=== PATIENT | female | born 1985 | race Caucasian/White ===

== ENCOUNTER 2018-12-18 08:00 | Inpatient (IN) ==
[2018-12-18] MEDS ORDERED: Ondansetron 4 MG/2 ML VIAL IVP PRN (08:20)
[2018-12-18] MEDS ORDERED: *HR* Nalbuphine 10 MG/ML AMPUL IVP PRN (08:20)
[2018-12-18] MEDS ORDERED: Naloxone 0.4 MG/ML INJ IVP PRN (08:20)
[2018-12-18] MEDS ORDERED: Famotidine 20 MG/2 ML VIAL IVP PRN (08:20)
[2018-12-18] MEDS ORDERED: Metoclopramide 10 MG/2 ML VIAL IVP PRN (08:20)
[2018-12-18] MEDS ORDERED: Oxytocin 20 units/ LR 1000 mL 20 UNIT/1,000 ML BAG IVC SCH ×2 (08:30→18:16)
[2018-12-18] MEDS ORDERED: Ringers Solution, Lactated 1,000 ML IVC SCH (08:30)
[2018-12-18 09:37] LABS: Basophils % 0.1 %; Eosinophils # 0.1 K/mcL (0.0-0.6); Eosinophils % 0.6 %; Hematocrit 37.2 % (35.3-44.9); Hemoglobin 12.6 g/dL (11.5-15.4); Immature Granulocytes % 0.9 % (0-4); Lymphocytes # 1.4 K/mcL (0.6-4.6); Lymphocytes % 10.4 %; Mean Corpuscular HGB Conc 33.9 g/dL (31.6-35.5); Mean Corpuscular Hemoglobin 30.8 pg (28.0-33.3); Mean Platelet Volume 11.3 fL (9.4-12.4); Monocytes # 0.8 K/mcL (0.0-1.3); Monocytes % 5.5 %; Neutrophils # 11.3 K/mcL (1.6-8.9); Platelet Count 166 K/mcL (140-400); Red Blood Count 4.09 M/mcL (3.82-4.97); Segmented Neutrophils % 82.5 %
[2018-12-18 09:48] LABS: Amphetamine Screen,Urine Negative ng/mL (Cutoff=1000); Barbiturate Screen,Urine Negative ng/mL (Cutoff=200); Benzodiazepines Screen,Urine Negative ng/mL (Cutoff=200); Cannabinoid Screen,Urine Negative ng/mL (Cutoff = 50); Cocaine Screen,Urine Negative ng/mL (Cutoff= 300); Opiate Screen,Urine Negative ng/mL (Cutoff=300); Phencyclidine Screen,Urine Negative ng/mL (Cutoff=25)
--- NOTE | 2018-12-18 11:12 | Internal Med History&Physical ---
Date of Encounter: 12/18/18 Time of Encounter: 11:07 Internal Medicine - H&P: HPI Chief complaint: Induction of labor 39 wek Admitted From: Home Plans for Post Hospital Care: Home History of present illness: Ms. Butts is a 33 year old female who arrives for induction of labor at 39 w and 3d for expected vaginal delivery. Patient denies bleeding or vaginal discharge. Reports movement but denies contractions. Received appropriate pre care with only complication of obesity. A negative GBS negative Hep B s NR HIV NR RPR NR G/C negative Varicella Imm Rubella Imm UDS negative Past Med Surg Social Fam HX - Past Medical History Medical history: no medical history Additional medical history: PVD Psychiatric history: no psych history - Past Surgical History Surgical History: no surgical history Additional surgical history: wisdom teeth extraction, varicose veins - Social History Smoking Status: Never smoker Smokeless Tobacco Status: No Alcohol use: none Drug use: none - Family History Father Living Status: Still Living Hx Family Cardiac Disorders: Yes (Hypertension) Internal Medicine - H&P: Meds OxyCODONE/APAP 5/325 [Percocet 5/325 MG] 1 each PO Q4HR PRN #20 tablet 12/08/16 [Rx] Sertraline [Zoloft] 25 mg PO HS 12/08/16 [History] Allergy/AdvReac Type Severity Reaction Status Date / Time No Known Allergies Allergy Verified 01/17/17 12:56 All Systems PM: A 10-system review of systems was performed and is negative for pertinent findings except as documented above in the HPI. - Constitutional Constitutional: no fatigue - EENT Eyes: no blurry vision - Cardiovascular Cardiovascular ROS IM: no chest pain, no palpitations - Respiratory Respiratory: no cough, no dyspnea - Gastrointestinal Gastrointestinal: no abdominal pain, no change in bowel habits - Genitourinary Genitourinary: no difficulty voiding, no dysuria, no hematuria - Musculoskeletal Musculoskeletal ROS IM: no muscle cramps, no stiffness - Neurological Neurological ROS: no confusion, no headache(s) - Hematologic/Lymphatic Hematologic/Lymphatic: no easy bleeding, no easy bruising - Head Head exam: Present: atraumatic, normal inspection, normocephalic - Eye Eye exam: Present: EOMI, normal appearance - ENT ENT exam: Present: mucous membranes moist, normal exam, normal external ear exam - Neck Neck exam general surgery: Present: full ROM, normal inspection - Respiratory Respiratory exam: Present: CTAB. Absent: accessory muscle use - Cardiovascular Cardiovascular exam: Present: RRR. Absent: distant heart sounds, systolic murmur - GI/Abdominal GI/Abdominal exam: Present: hypoactive bowel sounds, soft. Absent: tenderness - External exam: Present: normal external exam. Absent: lesions - Expanded Exam External exam: Present: normal - Extremities Exam Extremities exam: Present: full ROM, radial pulses palpable and symmetrical - Back Exam Back exam: Present: full ROM. Absent: muscle spasm, tenderness - Neurological Exam Neurological exam: Present: alert, normal gait, oriented X3, no focal deficits - Psychiatric Psychiatric exam: Present: normal affect, normal mood - Skin Skin exam: Present: intact, warm. Absent: rash Internal Med - H&P Results - Labs CBC & Chem 7: 12/18/18 09:15 Labs: Short CBC 12/18/18 Range/Units 09:15 WBC 13.7 H (4.3-11.1) K/mcL Hgb 12.6 (11.5-15.4) g/dL Hct 37.2 (35.3-44.9) % Plt Count 166 (140-400) K/mcL Neutrophils # 11.3 H (1.6-8.9) K/mcL - Assessment and Plan (1) 39 weeks gestation of Current Visit: Yes Status: Acute Assessment and plan: Admitted for elective induction of labor at [address] Jorgensen (2) Encounter for induction of labor Current Visit: Yes Status: Acute Assessment and plan: Admitted for elective induction of labor per Dr Jorgensen - Plan to AROM when appropriate - start pitocin per protocol (3) Blood type A- Current Visit: Yes Status: Acute Assessment and plan: Collect cord blood at delivery - give rhogan at if needed - Time Spent With Patient Total time spent is greater than 50% in coordination of care (as documented) at patient's floor/unit and/or counseling patient: - VTE Reasons for not Prescribing Prophylaxis: Treatment not Indicated - Low risk for VTE
[2018-12-18] MEDS ORDERED: *HR* FentaNYL (PF) 100 MCG/2 ML VIAL ONE (11:26)
--- NOTE | 2018-12-18 11:27 | OB/GYN History & Physical ---
Date of Encounter: 12/18/18 Time of Encounter: 11:25 Assessment and Plan (1) 39 weeks gestation of Current visit: Yes Status: Acute Admitted for elective induction of labor at [address] Jorgensen (2) Encounter for induction of labor Current visit: Yes Status: Acute Admitted for elective induction of labor at [address] Jorgensen - Plan to AROM when appropriate - start pitocin per protocol (3) Blood type A- Current visit: Yes Status: Acute Collect cord blood at delivery - give rhogan at if needed History of Present Illness Chief complaint: induction of labor at 39 wk HPI: Ms. Butts is a 33 year old female who arrives for induction of labor at 39 w and 3d for expected vaginal delivery. Patient denies bleeding or vaginal discharge. Reports movement but denies contractions. Received appropriate pre enrique care with only complication of obesity. A negative GBS negative Hep B s NR HIV NR RPR NR G/C negative Varicella Imm Rubella Imm UDS negative Past Med Surg Social Fam HX - Past Medical History Medical history: no medical history Additional medical history: PVD Psychiatric history: no psych history - Past Surgical History Surgical History: no surgical history Additional surgical history: wisdom teeth extraction, varicose veins - Social History Smoking Status: Never smoker Smokeless Tobacco Status: No Alcohol use: none Drug use: none - Family History Father Living Status: Still Living Hx Family Cardiac Disorders: Yes (Hypertension) Obstetrical History - Pregnancies : 4 Para: 3 Term: 2 Ab's: 1 Livin Medications and Allergies OxyCODONE/APAP 5/325 [Percocet 5/325 MG] 1 each PO Q4HR PRN #20 tablet 12/08/16 [Rx] Sertraline [Zoloft] 25 mg PO HS 12/08/16 [History] Allergy/AdvReac Type Severity Reaction Status Date / Time No Known Allergies Allergy Verified 01/17/17 12:56 Review of System OB All systems PM: reviewed and no additional remarkable complaints except as stated - Constitutional Constitutional ROS IM: no fatigue - Cardiovascular Cardiovascular: no chest pain, no lightheadedness, no rapid heart rate - Respiratory Respiratory: no cough, no dyspnea - Gastrointestinal Gastrointestinal: no abdominal pain, no change in bowel habits - Genitourinary Genitourinary: no dysuria, no urinary frequency - Muscloskeletal Musculoskeletal: no back pain, no muscle weakness, no stiffness - Neurological Nerological: no headache(s), no syncope Exam - Constitutional Constitutional: well developed, well nourished, no acute distress - HEENT HEENT: EOMI, Normocephaly, Mucus Membranes Moist - Neck Neck exam: full ROM - Lungs Respiratory exam: CTAB - Cardiovascular Cardiovascular exam: RRR, +S1, +S2 - Abdomen Abdomen: Present: bowel sounds normal, non tender - Extremities Extremities exam: full ROM - Vagina Vagina: Present: normal moisture. Absent: ulceration Results Result Diagrams: 12/18/18 09:15 Abnormal lab results WBC 13.7 K/mcL (4.3-11.1) H 12/18/18 09:15 11.3 K/mcL (1.6-8.9) H 12/18/18 09:15 All other labs normal. - VTE Reasons for not Prescribing Prophylaxis: Treatment not Indicated - Low risk for VTE
[2018-12-18] MEDS ORDERED: Epidural Premix (fent/bupiv) 110 ML EP SCH (11:30)
[2018-12-18] MEDS ORDERED: Epidural Premix (fent/bupiv) 110 ML EP ONE (11:32)
[2018-12-18] MEDS ORDERED: Bupivacaine-MPF 0.25% 10 ML VIAL ONE (11:35)
[2018-12-18] MEDS ORDERED: EPHEDrine 50 MG/ML VIAL ONE (12:04)
--- NOTE | 2018-12-18 14:35 | OB/GYN Progress Note ---
Date of Encounter: 12/18/18 Time of Encounter: 14:33 - Assessment and Plan (1) 39 weeks gestation of Current Visit: Yes Status: Acute doing well. continue expectant management. anticipate vaginal delivery Subjective - Subjective Interval history: Comfortable with epidural. Baby is active. Objective - Vital Signs Vital Signs: Intake and Output 12/17/18 12/18/18 12/18/18 23:59 07:59 15:59 Other: Weight 92.079 kg Patient Weight 12/18/18 23:59 Weight 92.079 kg - Exam FHR: category 1 Cervical dilation: cx 6/80/-1 - Labs Labs: Abnormal lab results WBC 13.7 K/mcL (4.3-11.1) H 12/18/18 09:15 11.3 K/mcL (1.6-8.9) H 12/18/18 09:15
--- NOTE | 2018-12-18 15:36 | Anesthesia Evaluation PreOp ---
Date of Encounter: 12/18/18 Time of Encounter: 11:15 - Past History Planned Operation: labor epidural Cardiac History: Denies any Significant Hx Pulmonary History: Denies Any Significant HX TRANSPORTATION EQUIPMENT PAINTER History: Denies Any Significant HX, Other (depression) Other Medical History: Denies Any Significant HX Anesthesia History: No Prior Anesthetic Complications, Past Anesthesia (varicose veins left leg, wisdom teeth extracted, no problems with GA, No FHAP. Epidurals with previous pregnancies, no problems.) : Yes Alcohol Use: none Drug use: none Medications and Allergies OxyCODONE/APAP 5/325 [Percocet 5/325 MG] 1 each PO Q4HR PRN #20 tablet 12/08/16 [Rx] Sertraline [Zoloft] 25 mg PO HS 12/08/16 [History] Allergy/AdvReac Type Severity Reaction Status Date / Time No Known Allergies Allergy Verified 01/17/17 12:56 - Meds/Allergy Pre-op Review Medications Reviewed: Yes Allergies Reviewed: Yes Beta Blockers on Current Med List: No Anesthesia Results - Labs 12/18/18 09:15 Anesthesia Exam 136/83, 87, 16. FHTs 140s. Height: 5'5" Weight: 92kg NPO (# of Hours): 4 Pain Scale: 0 Pain Scale Used: Numeric (1 - 10) - HEENT Pupil (Motor): Pupils equal, EOMI Mallampati: II Teeth: Normal (states has chip to lower front incisor.) Oral Opening: Greater than 3 - TRANSPORTATION EQUIPMENT PAINTER LOC: Oriented TRANSPORTATION EQUIPMENT PAINTER Motor: Normal RUE, Normal LUE, Normal RLE, Normal LLE, Normal Face TRANSPORTATION EQUIPMENT PAINTER Sensory: Normal: RUE, LUE, RLE, LLE, Face - Cardiac Rhythm: Regular - Pulmonary Breath Sounds: bilateral Clear Respiratory Effort: Symmetrical Anesthesia Assess/Plan ASA Score: 2 Level of consciousness: Cooperative, Oriented, Tranquil Anesthetic Plan: Epidural
--- NOTE | 2018-12-18 15:44 | Anesthesia Procedures ---
Date of Encounter: 12/18/18 Time of Encounter: 11:33 Procedures: Anesthesia - Epidural/Spinal Patient ID/Chart reviewed: Yes Patient examined: Yes OB Eval: Gestational age: 39 OB Eval: : 4 OB Eval: Hx Para: 3 OB Eval: Dilated at (cm): 2 OB Eval: Contractions: Non-stressed pattern Consent Obtained: Yes Supplemental Oxygen: None/Room Air Site Prep: Aseptic Technique, Sterile prep and drape, Povidone-Iodine 1% Patient position: upright Local Anesthetic: Lidocaine 1% Amount of Local Anesthetic used: 5 Touhy Needle Gauge: 18 Touhy Needle Depth (cm): 7 Test Dose (1.5% Lido + Epi): Volume given (mls): 3 Test Dose Result: Negative Loading Dose: 0.25% Marcaine (mls): 6 Loading Dose: Fentanyl (mcg): 100 Loading Dose Administered: Thru Catheter Infusion Med: 0.125% Bupivacaine w/ 2 mcg/ml Fentanyl Infusion Rate (mls/hr): [address]: Tegaderm, Tape Interspace Used: L3-L4 Loss of Resistance (WENDIE): Yes Blood: No CSF: No Paresthesia: No Procedure: After epidural succesfully placed, catheter in place and dressing applied. Placed patient supine with HOB slightly elevated and began dosing catheter slowly, 3ml at a time of bupivacaine and fentanyl as charted previously. Patient became dissy, diaphoretic, and hypotensive 63/34. Applied oxygen per face mask, gave ephedrine 10mg X2 doses with immediate improvement of blood pressure to 110 sys., then 120 sys. and remained stable. FHTs remained 140s 150s during this time. Vitals + FHT's: Vital Signs Time 1133 1156 1200 1205 1207 1210 1215 BP 136/83 124/77 123/71 69/37 109/56 127/78 129/78 Pulse 87 96 88 52 52 61 63 FHTs 140 140 140 140 140 140 140
--- NOTE | 2018-12-18 17:55 | OB/GYN Procedure Note ---
Delivery - Delivery Date: 12/18/18 Provider: Susie Jorgensen Intrapartum events: none Delivery induction: oxytocin Delivery augmentation: rupture of membranes Delivery monitor: external FHT, external uterine Anesthesia: epidural Quantitated Blood Loss: 200 - (s) Infant A Delivery Date: 12/18/18 Infant Delivery Time: 17:29 Presentation: vertex Position: HARSHIL Route of delivery: Gender: Female Viability: Viable Pounds: 7 Ounces: 3 Weight Gram: 3065 kg at 1 minute: 8 at 5 mins: 9 Shoulder Dystocia: not encountered Specimens collected: cord blood Placenta: spontaneous - Repair Episiotomy: none Laceration Description: Perineal - 2nd Degree - Complications Delivery comments: Spontaneous vaginal delivery of a viable female infant over a second-degree midline laceration cord doubly clamped and cut placed on the mother's chest. Apgars 8 and 9 and one and 5 minutes respectively. Spontaneous delivery of the placenta without difficulty. Average estimated blood loss 200 mL. Second-degree midline laceration repaired with 3-0 Vicryl without difficulty. Baby and mother doing well in the room together. Sponge lap needle and strength counts correct 2. No complications.
[2018-12-18] MEDS ORDERED: Rho Immune Globulin 1,500 UNIT SYRINGE IM PRN (18:16)
[2018-12-18] MEDS ORDERED: Measles/Mumps/Rubella Vacc 0.5 ML VIAL SQ PRN (18:16)
[2018-12-18] MEDS ORDERED: Benzocaine/Menthol 56 GM AEROSOL SPRAY TP PRN (18:16)
[2018-12-18] MEDS ORDERED: Lanolin 7 G OINT...G. TP PRN (18:16)
[2018-12-18] MEDS ORDERED: Acetaminophen 325 MG TABLET PO PRN (18:16)
[2018-12-18] MEDS: Ibuprofen 600 MG TABLET PO PRN (18:44)
[2018-12-19] MEDS: Ibuprofen 600 MG TABLET PO PRN ×2 (02:05→08:55)
[2018-12-19 08:06] VITALS: BP 130/86
[2018-12-19] MEDS ORDERED: Prenatal Vit/FA 1 EACH TABLET PO SCH (09:00)
--- NOTE | 2018-12-19 12:02 | Discharge Summary ---
Date of Encounter: 12/19/18 Time of Encounter: 12:02 - Discharge Diagnosis (1) Status post vaginal delivery Priority: Primary Status: Acute Comments: Meeting milestones as expected. Lochia normal, without large clots. Pain well controlled with prescribed medications. Tolerating diet. Passing gas, no bowel movement yet. Ambulating without difficulty. well. Plan for discharge today. (2) Breast feeding status of mother Priority: Secondary Status: Acute - Discharge Medications Prescriptions: New Ibuprofen [Motrin] 600 mg PO Q6HR PRN #40 tablet PRN Reason: Cramping Discontinued Sertraline [Zoloft] 25 mg PO HS Home Medications: Ibuprofen [Motrin] 600 mg PO Q6HR PRN #40 tablet 12/19/18 [Rx] Allergies/Adverse Reactions: Allergy/AdvReac Type Severity Reaction Status Date / Time No Known Allergies Allergy Verified 01/17/17 12:56 Data Procedures and tests throughout hospitalization: Laboratory Tests 12/18/18 12/18/18 12/18/18 09:15 09:15 18:02 WBC 13.7 H RBC 4.09 Hgb 12.6 Hct 37.2 MCV 91.0 MCH 30.8 MCHC 33.9 RDW 13.0 Plt Count 166 MPV 11.3 Immature Gran % 0.9 Seg Neutrophils % 82.5 Lymphocytes % 10.4 Monocytes % 5.5 Eosinophils % 0.6 Basophils % 0.1 Neutrophils # 11.3 H Lymphocytes # 1.4 Monocytes # 0.8 Eosinophils # 0.1 Basophils # 0.0 Urine Opiates Screen Negative Ur Barbiturates Screen Negative Ur Phencyclidine Scrn Negative Ur Amphetamines Screen Negative U Benzodiazepines Scrn Negative Urine Cocaine Screen Negative U Marijuana (THC) Screen Negative Ur Drug Screen Interp See Below Screen NEGATIVE Baby's Blood Type A RH POSITIVE Mother's Blood Type A RH NEGATIVE Rhogam Indicated YES Rhogam Req for Mother 1 Labs on day of discharge: Labs from last 24 hours 12/18/18 18:02 Screen NEGATIVE Baby's Blood Type A RH POSITIVE Mother's Blood Type A RH NEGATIVE Rhogam Indicated YES Rhogam Req for Mother 1 Date of admission: 12/18/18 08:07 Primary care physician: Landy Pineda CNP Consults: 12/18/18 18:16 Consult to Linecasting Machine Keyboard Operator [CONS] Routine Comment: Vaginal delivery, consult needed Discharging clinician: Margoth Danielle - Patient Status Disposition: Home, Self-Care Condition: Good Functional capacity at discharge: independent ambulation Overall status at discharge: patient is progressing back to baseline - Discharge Instructions Follow Up With: Susie Jorgensen MD [Partnered Physician] - 01/20/19 2:50 pm Landy Pineda DISHWASHER BUSSER [Primary Care Provider] - - Diet and Activity Activity: increase activity as tolerated Diet: advance to your usual diet Hospital Course [employer] Hospital course: - Delivery Date: 12/18/18 Provider: Susie Jorgensen Intrapartum events: none Delivery induction: oxytocin Delivery augmentation: rupture of membranes Delivery monitor: external FHT, external uterine Anesthesia: epidural Quantitated Blood Loss: 200 - (s) Infant A Infant Delivery Date: 12/18/18 Delivery Time: 17:29 Presentation: vertex Position: HARSHIL Route of delivery: Gender: Female Viability: Viable Pounds: 7 Ounces: 3 Weight Gram: 3065 kg at 1 minute: 8 at 5 mins: 9 Shoulder Dystocia: not encountered Specimens collected: cord blood Placenta: spontaneous - Repair Episiotomy: none Laceration Description: Perineal - 2nd Degree Time Attestation: Total time spent providing and/or coordinating discharge services: Exam - Constitutional Vitals: Temp Pulse Resp BP Pulse Ox 98.0 F 86 16 130/86 100 12/19/18 08:05 12/19/18 08:05 12/19/18 08:05 12/19/18 08:05 12/19/18 08:05 General appearance IM: A&O X 3, pleasant, no acute distress - Respiratory Respiratory exam: Present: CTAB. Absent: respiratory distress, wheezes - Cardiovascular Cardiovascular exam IM: Present: RRR, +S1, +S2. Absent: diastolic murmur, systolic murmur - GI/Abdominal GI/Abdominal exam IM: normal bowel sounds, soft - Uterine Tone: Firm Uterus Position: 3 Fingers Below Umbilicus - Extremities Exam Extremities exam IM: Present: joint swelling (minimal swelling in hands bilaterally), pedal edema (1+ pitting edema on the right up to mid calf). Absent: tenderness - Neurological Exam Neurological exam: no focal deficits - Psychiatric Additional comments: reports good mood - VTE Reasons for not Prescribing Prophylaxis: Treatment not Indicated - Low risk for VTE
== END 2018-12-19 19:40 | disposition home or self-care (01) | DRG 807 ==
LOC: 1NENULAB 08:07 → 1NENUOBS 21:11
PROVIDERS: ADMIT Obstetrics & Gynecology; ATTEND Obstetrics & Gynecology